=== PATIENT | male | born 1995 | race African-American/Black ===

== ENCOUNTER 2020-08-21 17:20 | Observation (INO) ==
[2020-08-21] MEDS ORDERED: MoRPHine SULFATE 4 MG/ML 1 ML CARP\\VIAL IV STA ×2 (17:50→18:20)
[2020-08-21] MEDS ORDERED: SODIUM CHLORIDE 0.9% 1000ML 2,000 ML IV ONE (17:50)
[2020-08-21] MEDS ORDERED: ONDANSETRON INJ 2 MG/ML 2 ML VIAL IV STA ×2 (17:50→18:20)
--- NOTE | 2020-08-21 17:55 | Emergency Department Note ---
History of Present Illness General Chief complaint: Abdominal Pain Stated complaint: ABD PAIN, VOMITING Time Seen by Provider: 08/21/20 17:35 Source: patient Mode of arrival: ambulatory Limitations: no limitations History of Present Illness Maximum Pain Intensity: 10 This patient comes in after having an abdominal pain in the epigastric area and vomiting since this morning he had about 20 episodes. When I go in the room he told a bag with bilious emesis. He denies chest pain or shortness of breath. No fall or trauma. No sick contacts or unusual food. Denies fever or chills. It may radiate towards his back. No history of gallbladder or liver or pancreas disease. No lower abdominal tenderness no testicular pain or swelling. No dysuria or hematuria. No diarrhea and has had normal bowel movements without blood. He does not drink alcohol or use drugs Home Medications Medication Instructions Recorded Confirmed Type No Known Home Medications 08/21/20 08/21/20 History Allergies Allergy/AdvReac Type Severity Reaction Status Date / Time No Known Allergies Allergy Unverified 08/21/20 18:31 Past Med/Surg History Social History Smoking Status: Never smoker Feels Safe at Home: Yes Review of Systems A total of 10 systems reviewed and were otherwise negative Physical Exam Vital Signs Vital Signs - 24 hr 08/21/20 17:22 08/21/20 18:28 08/21/20 19:01 Temperature 36.6 C Temperature Source Oral Pulse Rate 70 72 Pulse Rate [Finger] 71 Pulse Rate from SpO2 Sensor 72 Pulse Rhythm Regular Pulse Strength Normal Respiratory Rate 18 18 16 Respiratory Effort / Characteristics Non-Labored Respiratory Depth Normal Respiratory Pattern Regular Blood Pressure 159/114 H 165/101 H Blood Pressure [Right Arm] 152/101 H Blood Pressure Mean 129 122 Blood Pressure Mean [Right Arm] 118 Blood Pressure Position Sitting Pulse Oximetry 98 100 100 Oxygen Delivery Method Room Air Room Air Sepsis Recent Fever Within 48 Hours No Sepsis New/Unexplained Change in Mental Status No Sepsis Action Taken by Nursing No Action Required 08/21/20 19:08 08/21/20 19:09 08/21/20 19:30 Temperature 36.6 C Temperature Source Oral Pulse Rate 73 67 Pulse Rate [Finger] 71 Pulse Rate from SpO2 Sensor 72 68 Pulse Rhythm Pulse Strength Respiratory Rate 18 16 13 Respiratory Effort / Characteristics Non-Labored Respiratory Depth Normal Respiratory Pattern Regular Blood Pressure 143/97 H Blood Pressure [Right Arm] 152/101 H Blood Pressure Mean 112 Blood Pressure Mean [Right Arm] 118 Blood Pressure Position Pulse Oximetry 100 100 100 Oxygen Delivery Method Room Air Sepsis Recent Fever Within 48 Hours Sepsis New/Unexplained Change in Mental Status Sepsis Action Taken by Nursing 08/21/20 20:53 08/21/20 20:54 08/21/20 21:00 Temperature Temperature Source Pulse Rate 72 76 74 Pulse Rate [Finger] Pulse Rate from SpO2 Sensor 76 72 Pulse Rhythm Pulse Strength Respiratory Rate 16 14 18 Respiratory Effort / Characteristics Respiratory Depth Respiratory Pattern Blood Pressure 147/92 H 164/99 H Blood Pressure [Right Arm] Blood Pressure Mean 110 120 Blood Pressure Mean [Right Arm] Blood Pressure Position Pulse Oximetry 99 100 Oxygen Delivery Method Sepsis Recent Fever Within 48 Hours Sepsis New/Unexplained Change in Mental Status Sepsis Action Taken by Nursing 08/21/20 21:01 08/21/20 21:30 08/21/20 21:31 Temperature Temperature Source Pulse Rate 78 76 75 Pulse Rate [Finger] Pulse Rate from SpO2 Sensor 81 74 76 Pulse Rhythm Pulse Strength Respiratory Rate 20 17 17 Respiratory Effort / Characteristics Respiratory Depth Respiratory Pattern Blood Pressure 173/108 H Blood Pressure [Right Arm] Blood Pressure Mean 129 Blood Pressure Mean [Right Arm] Blood Pressure Position Pulse Oximetry 100 100 100 Oxygen Delivery Method Sepsis Recent Fever Within 48 Hours Sepsis New/Unexplained Change in Mental Status Sepsis Action Taken by Nursing 08/21/20 21:57 08/21/20 22:00 08/21/20 22:30 Temperature 36.6 C Temperature Source Oral Pulse Rate 75 76 Pulse Rate [Finger] 71 Pulse Rate from SpO2 Sensor 74 82 Pulse Rhythm Pulse Strength Respiratory Rate 17 17 20 Respiratory Effort / Characteristics Non-Labored Respiratory Depth Normal Respiratory Pattern Regular Blood Pressure 162/106 H 148/104 H Blood Pressure [Right Arm] 152/101 H Blood Pressure Mean 124 118 Blood Pressure Mean [Right Arm] 118 Blood Pressure Position Pulse Oximetry 100 100 100 Oxygen Delivery Method Room Air Sepsis Recent Fever Within 48 Hours Sepsis New/Unexplained Change in Mental Status Sepsis Action Taken by Nursing General: Well developed well nourished mild to moderately ill-appearing young male who is holding emesis bag and appears uncomfortable but in no acute respiratory distress, breathing comfortably on room air. Normal speech HEENT: Normal cephalic atraumatic. Pupils are equal round and reactive to light. Extraocular movements are intact. Oropharynx is pink with moist mucous membranes. No swelling of the mouth lips or tongue. Neck: Supple with a midline trachea. No meningeal signs or stiffness, no JVD or bruits. No Stridor. Chest: Clear to auscultation bilaterally. No wheezes or rhonchi. No increased work of breathing. Heart: Regular rate and rhythm without murmurs or gallops. Abdomen: Soft moderately tender in the epigastric area, nondistended without rebound guarding or rigidity. Extremities: No cyanosis clubbing or edema. No calf tenderness or assymetry Spine/Back. Non tender to palpation. No CVA tenderness Skin: Good turgor without rashes. Neurologic exam: Cranial nerves two through 12 are intact. Motor and sensation are intact and symmetrical throughout. Course Administered Medications Pantoprazole Sodium 40 mg/ (Dextrose) 100 mls @ 20 mls/hr IV Q5H MARVIN Stop: 09/20/20 21:29 Last Admin: 08/21/20 22:23 Dose: 8 mg/hr, 20 mls/hr Documented by: [id number] Discontinued Medications Hydromorphone HCl (Hydromorphone Inj 1 Mg/Ml Syringe) 1 mg IV NOW STA Stop: 08/21/20 18:48 Last Admin: 08/21/20 19:02 Dose: 1 mg Documented by: [id number] Hydromorphone HCl (Hydromorphone Inj 1 Mg/Ml Syringe) 1 mg IV NOW STA Stop: 08/21/20 19:44 Last Admin: 08/21/20 19:57 Dose: Not Given Documented by: [id number] Sodium Chloride (Nss 1000ml) 2,000 mls @ 999 mls/hr IV .Q2H1M ONE Stop: 08/21/20 19:50 Last Admin: 08/21/20 18:03 Dose: 999 mls/hr Documented by: [id number] Pantoprazole Sodium 80 mg/ (Dextrose) 100 mls @ 400 mls/hr IV ONE STA Stop: 08/21/20 21:33 Last Infusion: 08/21/20 22:22 Dose: 0 mls/hr Documented by: [id number] Admin: 08/21/20 22:00 Dose: 400 mls/hr Documented by: [id number] Ioversol (Ioversol 100ml) 93 ml IV ONCE ONE Stop: 08/21/20 18:57 Last Admin: 08/21/20 18:56 Dose: 93 ml Documented by: [id number] Ketorolac Tromethamine (Ketorolac 30 Mg/Ml Vial) 30 mg IV NOW ONE Stop: 08/21/20 20:40 Last Admin: 08/21/20 20:50 Dose: 30 mg Documented by: [id number] Morphine Sulfate (Morphine Sulfate 4 Mg/Ml 1 Ml Carp\Vial) 4 mg IV NOW STA Stop: 08/21/20 17:51 Last Admin: 08/21/20 18:03 Dose: 4 mg Documented by: [id number] Morphine Sulfate (Morphine Sulfate 4 Mg/Ml 1 Ml Carp\Vial) 4 mg IV NOW STA Stop: 08/21/20 18:21 Last Admin: 08/21/20 18:26 Dose: 4 mg Documented by: [id number] Ondansetron HCl (Ondansetron Inj 2 Mg/Ml 2 Ml Vial) 4 mg IV NOW STA Stop: 08/21/20 17:51 Last Admin: 08/21/20 18:04 Dose: 4 mg Documented by: [id number] Ondansetron HCl (Ondansetron Inj 2 Mg/Ml 2 Ml Vial) 4 mg IV NOW STA Stop: 08/21/20 18:21 Last Admin: 08/21/20 18:26 Dose: 4 mg Documented by: [id number] Medical Decision Making Differential Diagnosis Gastroenteritis, pancreatitis, gallbladder disease, liver disease, bowel obstruction, infection, electrolyte or metabolic abnormality, Covid Medical Records Attestation: I reviewed the patient's medical records. Home Medications Current Medication List: was personally reviewed by me Laboratory Data Attestation: I reviewed the patient's lab results. Result diagrams: 08/21/20 18:03 08/21/20 18:03 Lab Results 08/21/20 08/21/20 08/21/20 Range/Units 18:03 18:03 19:46 WBC 11.44 H (4.8-10.8) K/uL RBC 5.68 (4.7-6.1) M/uL Hgb 17.6 (14.0-18.0) g/dL Hct 49.5 (42-52) % MCV 87.1 (80-100) fL MCH 31.0 (25-34) pg MCHC 35.6 (32-36) g/dL RDW Std Deviation 41.3 (36.4-46.3) fL RDW Coeff of Gio 12.9 (11.5-14.5) % Plt Count 327 (130-400) K/uL MPV 9.6 (7.4-10.4) fL Immature Gran % (Auto) 0.4 % Neut % (Auto) 88.0 % Lymph % (Auto) 8.4 % [place] % (Auto) 2.9 % Eos % (Auto) 0.0 % Baso % (Auto) 0.3 % Neut # (Auto) 10.07 H (1.4-6.5) K/uL Lymph # (Auto) 0.96 L (1.2-3.4) K/uL [place] # (Auto) 0.33 (0.11-0.59) K/uL Eos # (Auto) 0.00 (0-0.5) K/uL Baso # (Auto) 0.03 (0-0.2) K/uL Immature Gran # (Auto) 0.05 H (0.00-0.02) K/uL Sodium 140 (136-145) mmol/L Potassium 3.7 (3.5-5.1) mmol/L Chloride 111 H (98-107) mmol/L Carbon Dioxide 20 L (21-32) mmol/L Anion Gap 9.0 (3-11) BUN 13 (7-18) mg/dl Creatinine 0.95 (0.6-1.4) mg/dl Est Cr Clr Drug Dosing 150.5 ml/min Est GFR ( Amer) 126.6 Est GFR (Non-Af Amer) 109.3 BUN/Creatinine Ratio 13.9 (10-20) Glucose 124 H (70-99) mg/dl Calcium 9.5 (8.5-10.1) mg/dl Total Bilirubin 0.4 (0.2-1) mg/dl AST 17 (15-37) U/L ALT 42 (12-78) U/L Alkaline Phosphatase 149 H (45-117) U/L Troponin I < 0.015 (0-0.045) ng/ml Total Protein 8.4 H (6.4-8.2) gm/dl Albumin 4.4 (3.4-5.0) gm/dl Globulin 4.0 (2.5-4.0) gm/dl Albumin/Globulin Ratio 1.1 (0.9-2) Lipase 70 L (73-393) U/L Urine Color Urine Appearance (Clear) Urine pH (4.5-7.5) Ur Specific [place] (1.000-1.030) Urine Protein (Negative) Urine Glucose (UA) (Negative) Urine Ketones (Negative) Urine Blood (Negative) Urine Nitrite (Negative) Urine Bilirubin (Negative) Urine Urobilinogen (Negative) Ur Leukocyte Esterase (Negative) Urine WBC (Auto) (0-5) /hpf Urine RBC (Auto) (0-4) /hpf U Hyaline Cast (Auto) (0-5) /lpf U Epithel Cells (Auto) (0-5) /lpf Urine Bacteria (Auto) (Negative) Ur Renal Epithelial Cell Urine Opiates Screen Pos H (Neg) Ur Methadone, Qual Neg (Neg) Urine Barbiturates Neg (Neg) Ur Phencyclidine (PCP) Neg (Neg) U Amphetamin/Meth Scrn Neg (Neg) MDMA (Ecstasy) Screen Neg (Neg) U Benzodiazepines Scrn Neg (Neg) Ur Cocaine Metabolite Pos H (Neg) U Marijuana (THC) Screen Neg (Neg) COVID-19 Eval Order SARS-CoV-2 (PCR) (Negative) Influenza Type A (PCR) (Neg) Influenza Type B (PCR) (Neg) RSV (RT-PCR) (Neg) 08/21/20 08/21/20 08/21/20 Range/Units 19:46 19:46 19:46 WBC (4.8-10.8) K/uL RBC (4.7-6.1) M/uL Hgb (14.0-18.0) g/dL Hct (42-52) % MCV (80-100) fL MCH (25-34) pg MCHC (32-36) g/dL RDW Std Deviation (36.4-46.3) fL RDW Coeff of Gio (11.5-14.5) % Plt Count (130-400) K/uL MPV (7.4-10.4) fL Immature Gran % (Auto) % Neut % (Auto) % Lymph % (Auto) % [place] % (Auto) % Eos % (Auto) % Baso % (Auto) % Neut # (Auto) (1.4-6.5) K/uL Lymph # (Auto) (1.2-3.4) K/uL [place] # (Auto) (0.11-0.59) K/uL Eos # (Auto) (0-0.5) K/uL Baso # (Auto) (0-0.2) K/uL Immature Gran # (Auto) (0.00-0.02) K/uL Sodium (136-145) mmol/L Potassium (3.5-5.1) mmol/L Chloride (98-107) mmol/L Carbon Dioxide (21-32) mmol/L Anion Gap (3-11) BUN (7-18) mg/dl Creatinine (0.6-1.4) mg/dl Est Cr Clr Drug Dosing ml/min Est GFR ( Amer) Est GFR (Non-Af Amer) BUN/Creatinine Ratio (10-20) Glucose (70-99) mg/dl Calcium (8.5-10.1) mg/dl Total Bilirubin (0.2-1) mg/dl AST (15-37) U/L ALT (12-78) U/L Alkaline Phosphatase (45-117) U/L Troponin I (0-0.045) ng/ml Total Protein (6.4-8.2) gm/dl Albumin (3.4-5.0) gm/dl Globulin (2.5-4.0) gm/dl Albumin/Globulin Ratio (0.9-2) Lipase (73-393) U/L Urine Color Yellow Urine Appearance Clear (Clear) Urine pH 7.0 (4.5-7.5) Ur Specific [place] > 1.045 H (1.000-1.030) Urine Protein Trace H (Negative) Urine Glucose (UA) Negative (Negative) Urine Ketones 4+ H (Negative) Urine Blood Negative (Negative) Urine Nitrite Negative (Negative) Urine Bilirubin Negative (Negative) Urine Urobilinogen Negative (Negative) Ur Leukocyte Esterase Negative (Negative) Urine WBC (Auto) 5-10 H (0-5) /hpf Urine RBC (Auto) 0-4 (0-4) /hpf U Hyaline Cast (Auto) 10-30 H (0-5) /lpf U Epithel Cells (Auto) >30 H (0-5) /lpf Urine Bacteria (Auto) Negative (Negative) Ur Renal Epithelial Cell Not Reportable Urine Opiates Screen (Neg) Ur Methadone, Qual (Neg) Urine Barbiturates (Neg) Ur Phencyclidine (PCP) (Neg) U Amphetamin/Meth Scrn (Neg) MDMA (Ecstasy) Screen (Neg) U Benzodiazepines Scrn (Neg) Ur Cocaine Metabolite (Neg) U Marijuana (THC) Screen (Neg) COVID-19 Eval Order [facility]FluRsv at [facility] SARS-CoV-2 (PCR) NEGATIVE (Negative) Influenza Type A (PCR) Negative (Neg) Influenza Type B (PCR) Negative (Neg) RSV (RT-PCR) Negative (Neg) Imaging Data Attestation: I personally reviewed and interpreted this imaging study as follows: My Impression: Chest x-rayno acute infiltrate, failure, pneumothorax seen. No free air. Radiologist's Impression: XR chest 1V portable HISTORY: 25 years-old Male epigastric pain acute epigastric abdominal pain COMPARISON: None TECHNIQUE: Portable AP view the chest FINDINGS: Cardiac silhouette is upper limits of normal in size. No pneumothorax, pleural effusion, airspace consolidation or overt pulmonary edema. Bones of the chest appear grossly intact. IMPRESSION: No acute process. ABDOMEN AND PELVIS CT WITH IV CONTRAST CT DOSE: 1569.05 mGy.cm HISTORY: Acute epigastric abdominal pain with vomiting epigastric pain, vomiting TECHNIQUE: Multiaxial CT images of the abdomen and pelvis were performed following the IV administration of 93 cc of Optiray 320, A dose lowering technique was utilized adhering to the principles of ALARA. COMPARISON STUDY: Chest radiograph of same day FINDINGS: Imaged inferior cardiac chambers are unremarkable. 6 mm solid nodule the basal left lower lobe on image 60 series 3 is indeterminate however statistically benign. No pneumatosis or pneumoperitoneum. Unremarkable spleen, pancreas and adrenal glands. Cholecystectomy. Unremarkable liver. Patency of the hepatic and portal veins. Unremarkable kidneys. No hydronephrosis. Urinary bladder and prostate are within normal limits. Aorta and IVC are within normal limits. There is no adenopathy. Small hiatal hernia. No bowel obstruction or bowel wall thickening. A few scattered nondilated air and fluid-filled loops of small bowel are present. Areas of wall thickening throughout the colon are likely secondary to partial distention. Noninflamed appendix. No ascites or mesenteric inflammation. Tiny fat filled periumbilical hernia. Unremarkable soft tissues. No acute fracture. IMPRESSION: 1. No bowel obstruction or pneumoperitoneum. 2. Mild wall thickening throughout the majority of the colon is likely secondary to partial distention. 3. Normal appendix. ECG Data Attestation: I personally reviewed and interpreted this ECG as follows: Indication: + abdominal pain Rate (beats per minute): 77 Rhythm: + normal sinus ECG Intervals/blocks: + Normal QRS, + Normal QT and + Normal IN ECG [place]: + Normal ECG ST segments: + repolarization abnormalities ECG Findings: no PACs and no PVCs Comparison ECG Date: no prior available MDM Narrative This patient comes in as described above. He was placed in room A2. Vomiting multiple episodes of abdominal pain it appears bilious now without blood. He has stable vitals however he does look very uncomfortable and his abdomen is very tender. IV access established and he was hydrated with a 2 L normal saline is given morphine 4 mg and Zofran 4 mg IV and extensive work-up was obtained. He did require additional IV morphine and I also gave him IV Dilaudid after he still seemed having pain. With additional IV Zofran the nausea seemed to be better. His white count was found to be mildly elevated. He has no significant electrolyte or metabolic abnormalities. He has nothing to suggest liver, gallbladder disease or pancreatitis, based on his blood work. He has normal renal function. EKG does not suggest acute coronary syndrome or arrhythmia troponin is negative his symptoms do not seem congested consistent with cardiac disease. Chest x-ray shows no free air or pulmonary process. With his sign ificant pain I was concerned about intra-abdominal or surgical process I did order a CT with IV contrast. CAT scan does not show any acute abnormalities or bowel obstruction. Despite his work-up looking benign with exception of a mildly elevated white count he continues to complain of pain and vomiting. He did receive IV Toradol and several rounds of IV narcotics. I do think he needs to be admitted for further treatment and evaluation we did Covid test him and it was negative. The hospitalist team saw him also added a lactic acid and are going to do an MRI angio to rule out any bowel ischemia. We did a urine drug screen also which was positive for opiate and cocaine metabolites. I do think he needs to be admitted for pain management and further and Dr. White and the [facility] hospitalist team will see him for these measures Continuous cardiac monitoring: Due to his epigastric pain order was placed in the EMR for continuous cardiac monitoring. Upon my interpretation, he was noted to be in normal sinus rhythm a pulse of 75. Impression & Plan Abdominal pain, Vomiting, Intractable abdominal pain, Dehydration, COVID-19 ruled out by laboratory testing Discharge Plan Visit Data Chief Complaint: Abdominal Pain Stated Complaint: ABD PAIN, VOMITING ED Provider: Narinder Allred Discharge Problem: Abdominal pain, Vomiting, Intractable abdominal pain, Dehydration, COVID-19 ruled out by laboratory testing Forms Stand Alone Forms: My [facility] Prescriptions Prescriptions: No Action No Known Home Medications RF: 0 Discharge Problem: Abdominal pain Qualifiers: Abdominal location: epigastric Qualified Code(s): R10.13 - Epigastric pain Vomiting Qualifiers: Vomiting type: unspecified Vomiting Intractability: intractable Nausea presence: with nausea Qualified Code(s): R11.2 - Nausea with vomiting, unspecified
[2020-08-21 18:09] LABS: Basophils # (auto) 0.03 K/uL (0-0.2); Basophils % (auto) 0.3 %; Hematocrit (blood only) 49.5 % (42-52); Hemoglobin 17.6 g/dL (14.0-18.0); Immature Granulocytes # (auto) 0.05 K/uL (0.00-0.02); Immature Granulocytes % (auto) 0.4 %; Lymphocytes # (auto) 0.96 K/uL (1.2-3.4); Lymphocytes % (auto) 8.4 %; Mean Corpuscular Hgb Conc 35.6 g/dL (32-36); Mean Corpuscular Volume 87.1 fL (80-100); Mean Platelet Volume 9.6 fL (7.4-10.4); Monocytes # (auto) 0.33 K/uL (0.11-0.59); Monocytes % (auto) 2.9 %; Neutrophils # (auto) 10.07 K/uL (1.4-6.5); Platelet Count 327 K/uL (130-400); RDW Coefficient of Variation 12.9 % (11.5-14.5); RDW Standard Deviation 41.3 fL (36.4-46.3); Red Blood Count 5.68 M/uL (4.7-6.1); White Blood Count 11.44 K/uL (4.8-10.8)
[2020-08-21 18:27] LABS: Alanine Aminotransferase 42 U/L (12-78); Albumin Level 4.4 gm/dl (3.4-5.0); Aspartate Aminotransferase 17 U/L (15-37); BUN Creatinine Ratio 13.9 (10-20); Blood Urea Nitrogen 13 mg/dl (7-18); Calcium 9.5 mg/dl (8.5-10.1); Carbon Dioxide 20 mmol/L (21-32); Chloride 111 mmol/L (98-107); Creatinine Clr Calc Pharmacy 150.5 ml/min; Est GFR (African American) 126.6; Est GFR (Non-African American) 109.3; Glucose 124 mg/dl (70-99); Lipase 70 U/L (73-393); Potassium 3.7 mmol/L (3.5-5.1); Sodium 140 mmol/L (136-145)
[2020-08-21 18:32] LABS: Albumin Globulin Ratio 1.1 (0.9-2); Alkaline Phosphatase 149 U/L (45-117); Bilirubin,Total 0.4 mg/dl (0.2-1); Total Protein 8.4 gm/dl (6.4-8.2); Troponin I < 0.015 ng/ml (0-0.045)
--- NOTE | 2020-08-21 18:42 | XRay Report ---
XR chest 1V portable HISTORY: 25 years-old Male epigastric pain acute epigastric abdominal pain COMPARISON: None TECHNIQUE: Portable AP view the chest FINDINGS: Cardiac silhouette is upper limits of normal in size. No pneumothorax, pleural effusion, airspace con solidation or overt pulmonary edema. Bones of the chest appear grossly intact. IMPRESSION: No acute process. ACT 112: Negative or not required by law. The above report was generated using voice recognition software. It may contain grammatical, syntax o r spelling errors. Electronically signed by: Tyron Bundy M.D. 08/21/2020 6:41 PM
[2020-08-21] MEDS ORDERED: HYDROmorphone INJ 1 MG/ML SYRINGE IV STA ×2 (18:47→19:43)
[2020-08-21] MEDS ORDERED: OPTIRAY 320 100ml IV ONE (18:56)
--- NOTE | 2020-08-21 19:09 | CT Scan Report ---
ABDOMEN AND PELVIS CT WITH IV CONTRAST CT DOSE: 1569.05 mGy.cm HISTORY: Acute epigastric abdominal pain with vomiting epigastric pain, vomiting TECHNIQUE: Multiaxial CT images of the abdomen and pelvis were performed following the IV administrat ion of 93 cc of Optiray 320, A dose lowering technique was utilized adhering to the principles of AL AMA. COMPARISON STUDY: Chest radiograph of same day FINDINGS: Imaged inferior cardiac chambers are unremarkable. 6 mm solid nodule the basal left lower l obe on image 60 series 3 is indeterminate however statistically benign. No pneumatosis or pneumoperit oneum. Unremarkable spleen, pancreas and adrenal glands. Cholecystectomy. Unremarkable liver. Patency of the hepatic and portal veins. Unremarkable kidneys. No hydronephrosis. Urinary bladder and prostate are within normal limits. Aorta and IVC are within normal limits. There is no adenopathy. Small hiatal hernia. No bowel obstruction or bowel wall thickening. A few scattered nondilated air and fluid-filled loops of small bowel are pr esent. Areas of wall thickening throughout the colon are likely secondary to partial distention. [place] nflamed appendix. No ascites or mesenteric inflammation. Tiny fat filled periumbilical hernia. Unrema rkable soft tissues. No acute fracture. IMPRESSION: 1. No bowel obstruction or pneumoperitoneum. 2. Mild wall thickening throughout the majority of the colon is likely secondary to partial distentio n. 3. Normal appendix. ACT 112: Negative or not required by law. The above report was generated using voice recognition software. It may contain grammatical, syntax o r spelling errors. Electronically signed by: Tyron Bundy M.D. 08/21/2020 7:08 PM
[2020-08-21 20:04] LABS: Appearance Urine Clear (Clear); Bacteria Urine Automated Negative (Negative); Bilirubin Urine Negative (Negative); Blood Urine Negative (Negative); Color Urine Yellow; Epithelial Cell Urine Auto >30 /lpf (0-5); Glucose Urine UA Negative (Negative); Ketones Urine 4+ (Negative); Leukocyte Esterase Urine Negative (Negative); Nitrite Urine Negative (Negative); Protein Urine Trace (Negative); RBC Urine Automated 0-4 /hpf (0-4); Specific Gravity Urine > 1.045 (1.000-1.030); Urobilinogen Urine Negative (Negative)
[2020-08-21 20:26] LABS: Amphetamines+Metham, Urine Neg (Neg); Barbiturates, Urine Neg (Neg); Benzodiazepine, Urine Neg (Neg); Cocaine, Urine Pos (Neg); MDMA (Ecstacy), Urine Neg (Neg); Methadone, Urine Neg (Neg); Opiate, Urine Pos (Neg); Phencyclidine, Urine Neg (Neg)
[2020-08-21] MEDS ORDERED: KETOROLAC 30 MG/ML VIAL IV ONE (20:39)
[2020-08-21 20:44] LABS: Influenza A virus by PCR Negative (Neg); Influenza B virus by PCR Negative (Neg); RSV by PCR Negative (Neg); SARS CoV2 RNA(COVID-19) InHosp NEGATIVE (Negative)
--- NOTE | 2020-08-21 21:13 | History & Physical Report ---
Date of Service August 21, 2020 Assessment & Plan (1) Abdominal pain: Patient is a 25 year with PMHx cholecystectomy who presents with one day history of copious vomiting, coffee ground emesis, and severe abdominal pain. Abdominal Pain with Copious vomiting and coffee ground emesis -Initial WBC mildly elevated 11.44 suspect due to demargination -Hgb 17.6, likely from hemoconcentration due to profuse vomiting -CT Ab/Pelv without signs of bowel obstruction or pneumoperitoneum, mild wall thickening throughout colon. -Though patient noting coffee ground emesis, Sixto-Blatchford Bleeding Score of 0 with low risk for GI bleed. Still possibility for GI ulcer, though no recent NSAID use or other symptoms flagging for ulceration. -Will still empirically bolus with Protonix 80mg and place on protonix gtt for possibility of EGD -GI consulted for possible scope -With positive cocaine on UDS, although patient denies still with some concern for ischemic bowel -Will order for MRA of Ab/Pelv to r/o mesenteric ischemia. If positive then will consult surgery. -Will also order for Lactic acid, pending. -Zofran PRN nausea -At this time will give Benadryl and Tylenol for pain control. -Patient already received Morphine 8mg, Dilaudid 1mg, and Toradol 30mg in the ED with minimal improvement. -With positive drug screen hesitate to continually give increasing dosing of narcotics without reasonable cause, awaiting MRA and lactic results as above. Dispo: M/S Telemetry. Suspect that patient's discomfort is more likely viral and should resolve in 24-48 hours at most, though with concerns for cocaine abuse and possible mesenteric ischemia/bowel necrosis will continue monitoring on telemetry and provide IVF, pain control, and nausea control. FEN: NPO, LR 150ml/hr DVT: SCD Code: Full (2) Vomiting: History of Present Illness Chief Complaint: Coffee ground emesis, abdominal pain Primary Care Provider: NO PCP Patient is a 25 year with PMHx cholecystectomy who presents with one day history of copious vomiting, coffee ground emesis, and severe abdominal pain. Patient notes that he recently returned from the [employer] yesterday when this morning he started experiencing severe abdominal pain with associated vomiting. He has vomited over 20+ times throughout the day, noting a majority of the emesis had coffee ground throughout and the remaining was a green/yellow. He has not been able to keep any food or fluids down today. He states that his abdominal pain currently is 9/10 worse epigastric and the upper quadrants, but is fairly diffuse throughout all quadrants. In the ED he has received 8mg IV Zofran, 8mg IV Morphine, 1mg Dilaudid, and 30mg Ketorolac with minimal improvement in his pain. He has also undergone a CT of his abdomen and pelvis noting mild wall thickening, but otherwise nonspecific for other etiology. Interestingly enough, his urine drug screen was positive for Opiates and Cocaine. While the Opiates may be from the administration here in the hospital, unsure for the reason for cocaine positivity. Discussed findings with patient who denied vehemently in multiple regards to having used any cocaine or crack cocaine in his life. He also denies being around anyone who may have been using it, sharing any foods, drinks, etc. Patient denies fever, chills, SOB, chest pain, headache, diarrhea, BRB per rectum. Notes abdominal pain, nausea, vomiting, coffee ground emesis. Med Hx: negative per patient Surg Hx: Cholecystectomy Soc Hx: 1 pack cigarettes/week, denies alcohol use, vehemently denies drug use. Allergies Allergy/AdvReac Type Severity Reaction Status Date / Time No Known Allergies Allergy Unverified 08/21/20 18:31 Home Medications Medication Instructions Recorded Confirmed Type No Known Home Medications 08/21/20 08/21/20 History Past Med/Surg History Social History Smoking Status: Current every day smoker Do You Dip or Chew Tobacco: No; Hx Alcohol Use: No Hx Substance Use: No Preferred Language: Portuguese Communication Ability: Effective Intermediate Project Manager Required: No Beliefs That Will Affect Care: None Current Living Situation: Parent Current Living Situation Comment: Lives with mother Other Information That Helps Us Care for You: No Feels Safe at Home: Yes Safety Concerns: Feels Safe At This Time Assistive Devices: None Review of Systems Review of Systems: All systems reviewed & are unremarkable except as noted in Subjective Physical Exam Constitutional: WD/WN, vitals as above Eyes: PERRL, conjunctivae normal, anicteric sclerae ENMT: external ear and nose normal, oropharynx normal Neck: trachea midline, no thyromegaly Respiratory: normal respiratory effort, lungs clear to auscultation Cardiovascular: RRR, no murmur, no edema Gastrointestinal (Abdomen): Inspection/Auscultation: + abdomen distended and + hypoactive bowel sounds Percussion/Palpation: + abdomen tender (Extremely TTP in all quadrants worse in the upper), + guarding and abdomen soft; abdomen not rigid and abdomen not firm Patient DOES NOT have pain out of proportion on abdominal exam. His pain DOES worsen with palpation of the abdomen significantly. Musculoskeletal: no cyanosis or clubbing, extremities motor strength 5/5 Skin: no rashes, warm and dry Neurologic: PERRL, EOMI, accommodation nl, no face palsy, no dysarthria Psychiatric: Orientation: alert and oriented x 3 Eye Contact: + fair eye contact Results & Data Results & Data ([facility]) Vital Signs (Past 12 Hours) Vital Signs Temp Pulse Pulse Resp BP BP Pulse Ox 08/21/20 19:30 67 13 143/97 H 100 08/21/20 19:09 73 16 100 08/21/20 19:08 36.6 C 71 18 152/101 H 100 08/21/20 19:01 72 16 165/101 H 100 08/21/20 18:28 71 18 152/101 H 100 08/21/20 17:22 36.6 C 70 18 159/114 H 98 Supervising Physician Co-Signing Physician Notes Attending addendum: I have physically seen this patient, have supervised the medical residents activities, and agree with the H&P unless as otherwise noted. Assessment and Plan: Abdominal pain/vomiting/patient reported coffee-ground emesis- CT abdomen/pelvis without significant findings Urine drug screen positive for cocaine, bring up concern for possible gastric ulcer versus delayed gastric emptying versus ischemic colitis MRA abdomen pelvis negative. N.p.o. Protonix IV IV fluids Zofran 4 mg IV every 6 hours as needed Consult gastroenterology for possible need for EGD if symptoms are persistent Of note, patient received morphine 8 mg IV, Dilaudid 1 mg IV, Toradol 30 mg IV and Zofran IV with minimal improvement in symptoms. Remaining orders and notations as noted Resident Activity Tracking Resident Involvement: Resident Care Provided Care Provided: Adult [facility]
[2020-08-21] MEDS ORDERED: PANTOprazole 80 MG in DEXTROSE 5% 100 ML IV STA (21:19)
[2020-08-21] MEDS: PANTOprazole 40 MG in DEXTROSE 5% 100 ML IV SCH (22:23)
[2020-08-21] MEDS ORDERED: GADOBUTROL 65ML VIAL IV ONE (23:52)
[2020-08-22] MEDS ORDERED: LACTATED RINGER'S 1,000 ML IV ONE (00:35)
[2020-08-22] MEDS ORDERED: ONDANSETRON INJ 2 MG/ML 2 ML VIAL IV PRN (00:55)
[2020-08-22] MEDS: diphenhydrAMINE 50 MG/ML VIAL IV PRN ×2 (01:10→09:40)
[2020-08-22] MEDS: ACETAMINOPHEN 500 MG TAB PO PRN ×2 (01:10→09:40)
[2020-08-22] MEDS: LACTATED RINGER'S 1,000 ML IV SCH ×2 (02:29→07:04)
[2020-08-22 02:44] LABS: Basophils # (auto) 0.01 K/uL (0-0.2); Basophils % (auto) 0.1 %; Hematocrit (blood only) 43.9 % (42-52); Hemoglobin 15.8 g/dL (14.0-18.0); Immature Granulocytes # (auto) 0.07 K/uL (0.00-0.02); Immature Granulocytes % (auto) 0.5 %; Lymphocytes # (auto) 0.94 K/uL (1.2-3.4); Lymphocytes % (auto) 7.3 %; Mean Corpuscular Hemoglobin 31.5 pg (25-34); Mean Corpuscular Volume 87.6 fL (80-100); Mean Platelet Volume 9.5 fL (7.4-10.4); Monocytes # (auto) 0.61 K/uL (0.11-0.59); Monocytes % (auto) 4.7 %; Neutrophils # (auto) 11.24 K/uL (1.4-6.5); Neutrophils % (auto) 87.4 %; Platelet Count 340 K/uL (130-400); RDW Coefficient of Variation 13.3 % (11.5-14.5); RDW Standard Deviation 42.3 fL (36.4-46.3); Red Blood Count 5.01 M/uL (4.7-6.1); White Blood Count 12.87 K/uL (4.8-10.8)
[2020-08-22 02:51] LABS: Albumin Level 3.7 gm/dl (3.4-5.0); BUN Creatinine Ratio 17.9 (10-20); Calcium 8.6 mg/dl (8.5-10.1); Creatinine Clr Calc Pharmacy 188.9 ml/min; Est GFR (African American) 141.9; Est GFR (Non-African American) 122.4; Potassium 3.6 mmol/L (3.5-5.1)
[2020-08-22 02:54] LABS: Albumin Globulin Ratio 1.1 (0.9-2); Bilirubin,Total 0.4 mg/dl (0.2-1); Globulin 3.3 gm/dl (2.5-4.0)
[2020-08-22] MEDS: PANTOprazole 40 MG in DEXTROSE 5% 100 ML IV SCH ×2 (03:21→08:27)
[2020-08-22] MEDS ORDERED: ALUMINUM/MAGNESIUM SUSP 18 ML, LIDOCAINE HCL VISCOUS 2% 6 ML, BARCODE IDENTIFIER 1 EA PO ONE (03:29)
[2020-08-22] MEDS ORDERED: KETOROLAC TROMETHAMINE 15 MG/ML VIAL IV PRN (03:31)
[2020-08-22] MEDS ORDERED: LACTATED RINGER'S 500 ML IV ONE (03:31)
--- NOTE | 2020-08-22 04:08 | Billing Data ---
Date of Service August 22, 2020 Coding Level of Care Code 03247 OBS Care - Level 3
[2020-08-22] MEDS ORDERED: METOCLOPRAMIDE HCL INJ 5 MG/ML 2 ML VIAL IV STA (04:37)
--- NOTE | 2020-08-22 08:00 | Magnetic Resonance Report ---
MR ANGIOGRAPHY OF THE PELVIS WITH AND WITHOUT CONTRAST CLINICAL HISTORY: Concern for ischemic bowel. COMPARISON STUDY: CT of the abdomen and pelvis August 13, 2020. TECHNIQUE: Utilizing a 1.5 Amanda magnet and dedicated coil, unenhanced and contrast-enhanced MRA of t deacon pelvis was obtained. Intravenous injection of 15 cc of Gadavist was uneventful. FINDINGS: Please note that the MRA of the abdomen will be reported separately. The caliber of the abd ominal aorta is normal. The celiac axis, superior mesenteric artery and inferior mesenteric artery ar e patent. The bilateral renal arteries are patent. Nephrograms are symmetric. The bilateral common il iac, external iliac and internal iliac arteries are patent. No dissection is noted. There is no signi ficant stenosis within these vessels. No atherosclerotic plaque is identified. No fluid collection or ascites within the pelvis is noted. There is no lymphadenopathy. The caliber and wall thickness of v isualized small and large bowel within the pelvis is normal. IMPRESSION: Normal MRA of the pelvis. ACT 112: Negative or not required by law. Electronically signed by: Virgil Mtz M.D. 08/22/2020 7:59 AM
--- NOTE | 2020-08-22 08:06 | Magnetic Resonance Report ---
MR angio abdomen wo/w con HISTORY: Generalized abdominal pain. Nausea. Vomiting. Concern for ischemic bowel TECHNIQUE: Multiplanar multisequence MRI of the abdomen was performed both before and after the intra venous administration of 15 cc of Gadavist contrast. COMPARISON STUDY: Abdomen and pelvis CT 08/21/2020. FINDINGS: The lung bases are clear. The liver, spleen, adrenal glands, kidneys, and pancreas unremark able. The gallbladder surgically absent. The visualized loops of bowel show no wall thickening or obs truction. The abdominal aorta is normal in course and caliber with no evidence for dissection. The ma in portal vein and mesenteric veins appear patent. The celiac, renal, superior mesenteric, and inferi or mesenteric arteries appear widely patent. MRA of the pelvis will be reported separately. IMPRESSION: Normal MRA of the abdomen. ACT 112: Negative or not required by law. Electronically signed by: Dion Wesley M.D. 08/22/2020 8:05 AM
--- NOTE | 2020-08-22 09:09 | Gastrointestinal Consultation ---
Date of Consultation August 22, 2020 Assessment & Plan (1) Abdominal pain: Abdominal pain: Presented with epigastric abdominal pain, nausea, and vomiting that began yesterday morning with subsequent admission for further management. He has continued abdominal pain with palpation that is worse in the epigastric region. No current nausea or vomiting. Protonix gtt and IVF continue. Would maintain NPO due to abdominal pain and advance diet as tolerated once improving. Discussed case with Dr. Kenney. Will hold EGD at this time and monitor at this time. Please refer to supervising physician addendum for further recommendations. History of Present Illness Attending Physician: Jose A Hodges History of Present Illness The patient is a 25-year-old male with PMH to include cholecystectomy that presented to the ED 08/21/2020 with c/o epigastric abdominal pain, nausea, and coffee ground emesis. He was admitted for further management and the GI service was consulted to evaluate for EGD. On exam/interview today, the patient reports some improvement in symptoms since admission. Reports epigastric pain that wrapped into his back beginning yesterday morning. Reports nausea and vomiting began yesterday morning also. Reports emesis was green/black in color. This morning reports epigastric and generalized abdominal discomfort with palpation. Denies nausea or vomiting. Denies dizziness, shortness of breath, or chest pain. Denies fever. Has not had colonoscopy or EGD in the past. Last bowel movement yesterday morning. Denies melena or hematochezia. The patient is a current smoker. Reports he smokes 1 pack of cigarettes per week and has for the last year. Denies alcohol use. Denies use of recreational drugs including marijuana. 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 His father and girlfriend live near [place], [place]. He has a child age 99 years old. Allergies Allergy/AdvReac Type Severity Reaction Status Date / Time No Known Allergies Allergy Unverified 08/21/20 18:31 Home Medications Medication Instructions Recorded Confirmed Type No Known Home Medications 08/21/20 08/21/20 History Patient History Social History Smoking Status: Current every day smoker Do You Dip or Chew Tobacco: No; Hx Alcohol Use: No Hx Substance Use: No Preferred Language: Tongan Communication Ability: Effective Hand Former Required: No Beliefs That Will Affect Care: None Current Living Situation: Parent Current Living Situation Comment: Lives with mother Other Information That Helps Us Care for You: No Feels Safe at Home: Yes Safety Concerns: Feels Safe At This Time Assistive Devices: None Review of Systems Review of Systems: All systems reviewed & are unremarkable except as noted in Subjective Physical Exam Constitutional: WD/WN, vitals as above Eyes: no conjunctival abnormality ENMT: Ears: no hearing impairment Nose: no external nose abnormality Neck: normal visual inspection and trachea midline; no tracheal deviation Respiratory: normal respiratory effort, lungs clear to auscultation Cardiovascular: RRR, no murmur, no edema Gastrointestinal (Abdomen): Inspection/Auscultation: abdomen normal to inspection and normal bowel sounds; abdomen not distended Per cussion/Palpation: + abdomen tender (generalized pain with palpation worse in epigastric region), + guarding and abdomen soft; abdomen not rigid Musculoskeletal: Extremities: extremities normal to inspection Skin: no rashes, warm and dry Neurologic: PERRL, EOMI, accommodation nl, no face palsy, no dysarthria Psychiatric: A+Ox3, euthymic affect Results & Data ([facility]) Vital Signs (Past 12 Hours) Vital Signs Temp Pulse Pulse Resp BP BP Pulse Ox 08/22/20 07:50 37.6 C H 96 H 20 149/81 H 99 08/22/20 01:42 37.1 C 91 H 18 159/91 H 93 08/22/20 00:52 84 08/22/20 00:30 108 H 17 122/89 99 08/22/20 00:10 37.1 C 18 93 08/22/20 00:00 74 17 149/75 H 97 08/21/20 23:45 73 16 100 08/21/20 23:44 71 21 165/96 H 100 08/21/20 22:30 76 20 148/104 H 100 08/21/20 22:00 75 17 162/106 H 100 08/21/20 21:57 36.6 C 71 17 152/101 H 100 08/21/20 21:31 75 17 100 08/21/20 21:30 76 17 173/108 H 100 08/21/20 21:01 78 20 100 08/21/20 21:00 74 18 164/99 H 100 08/21/20 20:54 76 14 99 08/21/20 20:53 72 16 147/92 H Laboratory Results - last 24 hr 08/21/20 08/21/20 08/21/20 18:03 18:03 18:03 WBC 11.44 H RBC 5.68 Hgb 17.6 Hct 49.5 MCV 87.1 MCH 31.0 MCHC 35.6 RDW Std Deviation 41.3 RDW Coeff of Gio 12.9 Plt Count 327 MPV 9.6 Immature Gran % (Auto) 0.4 Neut % (Auto) 88.0 Lymph % (Auto) 8.4 Bulloch % (Auto) 2.9 Eos % (Auto) 0.0 Baso % (Auto) 0.3 Neut # (Auto) 10.07 H Lymph # (Auto) 0.96 L Bulloch # (Auto) 0.33 Eos # (Auto) 0.00 Baso # (Auto) 0.03 Immature Gran # (Auto) 0.05 H Sodium 140 Potassium 3.7 Chloride 111 H Carbon Dioxide 20 L Anion Gap 9.0 BUN 13 Creatinine 0.95 Est Cr Clr Drug Dosing 150.5 Est GFR ( Amer) 126.6 Est GFR (Non-Af Amer) 109.3 BUN/Creatinine Ratio 13.9 Glucose 124 H Lactate Calcium 9.5 Total Bilirubin 0.4 AST 17 ALT 42 Alkaline Phosphatase 149 H Troponin I < 0.015 Total Protein 8.4 H Albumin 4.4 Globulin 4.0 Albumin/Globulin Ratio 1.1 Lipase 70 L Procalcitonin < 0.05 Urine Color Urine Appearance Urine pH Ur Specific [employer] Urine Protein Urine Glucose (UA) Urine Ketones Urine Blood Urine Nitrite Urine Bilirubin Urine Urobilinogen Ur Leukocyte Esterase Urine WBC (Auto) Urine RBC (Auto) U Hyaline Cast (Auto) U Epithel Cells (Auto) Urine Bacteria (Auto) Ur Renal Epithelial Cell Urine Opiates Screen U Codeine Confrm GC/MS Ur Morphine (GC/MS) Ur Hydrocodone (GC/MS) Ur Norhydrocodone Ur Noroxycodone Urine Oxycodone (GC/MS) U Oxymorphone GC/MS Ur Methadone, Qual Ur Hydromorphone (GC/MS) Urine Barbiturates Ur Phencyclidine (PCP) U Amphetamin/Meth Scrn MDMA (Ecstasy) Screen U Benzodiazepines Scrn U Cocaine Confirm GC/MS Ur Cocaine Metabolite U Marijuana (THC) Screen Drug Screen Comment COVID-19 Eval Order SARS-CoV-2 (PCR) Influenza Type A (PCR) Influenza Type B (PCR) RSV (RT-PCR) 08/21/20 08/21/20 08/21/20 19:46 19:46 19:46 WBC RBC Hgb Hct MCV MCH MCHC RDW Std Deviation RDW Coeff of Gio Plt Count MPV Immature Gran % (Auto) Neut % (Auto) Lymph % (Auto) Bulloch % (Auto) Eos % (Auto) Baso % (Auto) Neut # (Auto) Lymph # (Auto) Bulloch # (Auto) Eos # (Auto) Baso # (Auto) Immature Gran # (Auto) Sodium Potassium Chloride Carbon Dioxide Anion Gap BUN Creatinine Est Cr Clr Drug Dosing Est GFR ( Amer) Est GFR (Non-Af Amer) BUN/Creatinine Ratio Glucose Lactate Calcium Total Bilirubin AST ALT Alkaline Phosphatase Troponin I Total Protein Albumin Globulin Albumin/Globulin Ratio Lipase Procalcitonin Urine Color Yellow Urine Appearance Clear Urine pH 7.0 Ur Specific [employer] > 1.045 H Urine Protein Trace H Urine Glucose (UA) Negative Urine Ketones 4+ H Urine Blood Negative Urine Nitrite Negative Urine Bilirubin Negative Urine Urobilinogen Negative Ur Leukocyte Esterase Negative Urine WBC (Auto) 5-10 H Urine RBC (Auto) 0-4 U Hyaline Cast (Auto) 10-30 H U Epithel Cells (Auto) >30 H Urine Bacteria (Auto) Negative Ur Renal Epithelial Cell Not Reportable Urine Opiates Screen Pos H U Codeine Confrm GC/MS Ur Morphine (GC/MS) Ur Hydrocodone (GC/MS) Ur Norhydrocodone Ur Noroxycodone Urine Oxycodone (GC/MS) U Oxymorphone GC/MS Ur Methadone, Qual Neg Ur Hydromorphone (GC/MS) Urine Barbiturates Neg Ur Phencyclidine (PCP) Neg U Amphetamin/Meth Scrn Neg MDMA (Ecstasy) Screen Neg U Benzodiazepines Scrn Neg U Cocaine Confirm GC/MS Ur Cocaine Metabolite Pos H U Marijuana (THC) Screen Neg Drug Screen Comment COVID-19 Eval Order CovFluRsv at [facility] SARS-CoV-2 (PCR) Influenza Type A (PCR) Influenza Type B (PCR) RSV (RT-PCR) 08/21/20 08/21/20 08/21/20 19:46 19:46 23:41 WBC RBC Hgb Hct MCV MCH MCHC RDW Std Deviation RDW Coeff of Gio Plt Count MPV Immature Gran % (Auto) Neut % (Auto) Lymph % (Auto) Bulloch % (Auto) Eos % (Auto) Baso % (Auto) Neut # (Auto) Lymph # (Auto) Bulloch # (Auto) Eos # (Auto) Baso # (Auto) Immature Gran # (Auto) Sodium Potassium Chloride Carbon Dioxide Anion Gap BUN Creatinine Est Cr Clr Drug Dosing Est GFR ( Amer) Est GFR (Non-Af Amer) BUN/Creatinine Ratio Glucose Lactate 2.1 H* Calcium Total Bilirubin AST ALT Alkaline Phosphatase Troponin I Total Protein Albumin Globulin Albumin/Globulin Ratio Lipase Procalcitonin Urine Color Urine Appearance Urine pH Ur Specific [employer] Urine Protein Urine Glucose (UA) Urine Ketones Urine Blood Urine Nitrite Urine Bilirubin Urine Urobilinogen Ur Leukocyte Esterase Urine WBC (Auto) Urine RBC (Auto) U Hyaline Cast (Auto) U Epithel Cells (Auto) Urine Bacteria (Auto) Ur Renal Epithelial Cell Urine Opiates Screen U Codeine Confrm GC/MS Pending Ur Morphine (GC/MS) Pending Ur Hydrocodone (GC/MS) Pending Ur Norhydrocodone Pending Ur Noroxycodone Pending Urine Oxycodone (GC/MS) Pending U Oxymorphone GC/MS Pending Ur Methadone, Qual Ur Hydromorphone (GC/MS) Pending Urine Barbiturates Ur Phencyclidine (PCP) U Amphetamin/Meth Scrn MDMA (Ecstasy) Screen U Benzodiazepines Scrn U Cocaine Confirm GC/MS Pending Ur Cocaine Metabolite U Marijuana (THC) Screen Drug Screen Comment Pending COVID-19 Eval Order SARS-CoV-2 (PCR) NEGATIVE Influenza Type A (PCR) Negative Influenza Type B (PCR) Negative RSV (RT-PCR) Negative 08/22/20 08/22/20 08/22/20 02:06 02:06 02:08 WBC 12.87 H RBC 5.01 Hgb 15.8 Hct 43.9 MCV 87.6 MCH 31.5 MCHC 36.0 RDW Std Deviation 42.3 RDW Coeff of Gio 13.3 Plt Count 340 MPV 9.5 Immature Gran % (Auto) 0.5 Neut % (Auto) 87.4 Lymph % (Auto) 7.3 Bull[place] % (Auto) 4.7 Eos % (Auto) 0.0 Baso % (Auto) 0.1 Neut # (Auto) 11.24 H Lymph # (Auto) 0.94 L [place] # (Auto) 0.61 H Eos # (Auto) 0.00 Baso # (Auto) 0.01 Immature Gran # (Auto) 0.07 H Sodium 142 Potassium 3.6 Chloride 112 H Carbon Dioxide 19 L Anion Gap 11.0 BUN 14 Creatinine 0.80 Est Cr Clr Drug Dosing 188.9 Est GFR ( Amer) 141.9 Est GFR (Non-Af Amer) 122.4 BUN/Creatinine Ratio 17.9 Glucose 106 H Lactate 2.1 H* Calcium 8.6 Total Bilirubin 0.4 AST 12 L ALT 34 Alkaline Phosphatase 120 H Troponin I Total Protein 7.0 Albumin 3.7 Globulin 3.3 Albumin/Globulin Ratio 1.1 Lipase Procalcitonin Urine Color Urine Appearance Urine pH Ur Specific [employer] Urine Protein Urine Glucose (UA) Urine Ketones Urine Blood Urine Nitrite Urine Bilirubin Urine Urobilinogen Ur Leukocyte Esterase Urine WBC (Auto) Urine RBC (Auto) U Hyaline Cast (Auto) U Epithel Cells (Auto) Urine Bacteria (Auto) Ur Renal Epithelial Cell Urine Opiates Screen U Codeine Confrm GC/MS Ur Morphine (GC/MS) Ur Hydrocodone (GC/MS) Ur Norhydrocodone Ur Noroxycodone Urine Oxycodone (GC/MS) U Oxymorphone GC/MS Ur Methadone, Qual Ur Hydromorphone (GC/MS) Urine Barbiturates Ur Phencyclidine (PCP) U Amphetamin/Meth Scrn MDMA (Ecstasy) Screen U Benzodiazepines Scrn U Cocaine Confirm GC/MS Ur Cocaine Metabolite U Marijuana (THC) Screen Drug Screen Comment COVID-19 Eval Order SARS-CoV-2 (PCR) Influenza Type A (PCR) Influenza Type B (PCR) RSV (RT-PCR) 08/21/2020: ABDOMEN AND PELVIS CT WITH IV CONTRAST demonstrated 1. No bowel obstruction or pneumoperitoneum. 2. Mild wall thickening throughout the majority of the colon is likely secondary to partial distention. 3. Normal appendix. 08/21/2020: MR angio abdomen wo/w con demonstrated Normal MRA of the abdomen. 08/21/2020: MR ANGIOGRAPHY OF THE PELVIS WITH AND WITHOUT CONTRAST demonstrated Normal MRA of the pelvis (1) Abdominal pain Abdominal location: epigastric Qualified Code(s): R10.13 - Epigastric pain
[2020-08-22] MEDS ORDERED: SUCRALFATE 1 GM/10 ML UDC PO SCH (11:55)
--- NOTE | 2020-08-22 12:22 | Electrocardiogram Report ---
Test Reason : Blood Pressure : / mmHG Vent. Rate : 077 BPM Atrial Rate : 077 BPM P-R Int : 158 ms QRS Dur : 088 ms QT Int : 378 ms P-R-T Axes : 014 039 021 degrees QTc Int : 427 ms Normal sinus rhythm ST elevation, consider early repolarization, pericarditis, or injury Borderline ECG No previous ECGs available Confirmed by Bolivar Morris ([id number]) on 08/22/2020 12:21:59 PM Referred By: REFERRED SELF Confirmed By:Bolivar Morris
--- NOTE | 2020-08-22 13:23 | Discharge Summary ---
Date of Service date of admission - August 21, 2020 date of discharge - August 22, 2020 Admission HPI Per Admitting Provider Patient is a 25 year with PMHx cholecystectomy who presents with one day history of copious vomiting, coffee ground emesis, and severe abdominal pain. Patient notes that [facility] when this morning he started experiencing severe abdominal pain with associated vomiting. He has vomited over 20+ times throughout the day, noting a majority of the emesis had coffee ground throughout and the remaining was a green/yellow. He has not been able to keep any food or fluids down today. He states that his abdominal pain currently is 9/10 worse epigastric and the upper quadrants, but is fairly diffuse throughout all quadrants. In the ED he has received 8mg IV Zofran, 8mg IV Morphine, 1mg Dilaudid, and 30mg Ketorolac with minimal improvement in his pain. He has also undergone a CT of his abdomen and pelvis noting mild wall thickening, but otherwise nonspecific for other etiology. Interestingly enough, his urine drug screen was positive for Opiates and Cocaine. While the Opiates may be from the administration here in the hospital, unsure for the reason for cocaine positivity. Discussed findings with patient who denied vehemently in multiple regards to having used any cocaine or crack cocaine in his life. He also denies being around anyone who may have been using it, sharing any foods, drinks, etc. Patient denies fever, chills, SOB, chest pain, headache, diarrhea, BRB per rectum. Notes abdominal pain, nausea, vomiting, coffee ground emesis. Med Hx: negative per patient Surg Hx: Cholecystectomy Soc Hx: 1 pack cigarettes/week, denies alcohol use, vehemently denies drug use. Principal Diagnosis severe abdominal pain - possible gastritis; exact diagnosis uncertain as patient left Against Medical Advice Discharge Exam Constitutional + morbidly obese; no acute distress and no altered mental status ENMT external ear and nose normal, oropharynx normal Respiratory normal respiratory effort, lungs clear to auscultation Cardiovascular RRR, no murmur, no edema Heart Sounds: normal S1 and normal S2 Vessels: posterior tibial pulses present and dorsalis pedis pulses present Gastrointestinal (Abdomen) Inspection/Auscultation: normal bowel sounds; abdomen not distended Percussion/Palpation: + abdomen tender (Mild - high epigastric region ) and abdomen soft; no guarding, abdomen not rigid and no hepatosplenomegaly Skin no rashes, warm and dry Psychiatric Orientation: alert and oriented x 3 Discharge Data Allergies Allergy/AdvReac Type Severity Reaction Status Date / Time No Known Allergies Allergy Unverified 08/21/20 18:31 Consultations [facility] Ordered Studies 08/21/20 18:36 CT abd pelvis IV con only Stat IMPRESSION: 1. No bowel obstruction or pneumoperitoneum. 2. Mild wall thickening throughout the majority of the colon is likely secondary to partial distention. 3. Normal appendix. 08/21/20 21:11 MR angio abdomen wo/w con Stat - normal MRA abdomen. MR angio pelvis wo/w con Stat - normal MRA pelvis. Chest xray: no infiltrates COVID-19 PCR NEGATIVE Hospital Course (1) Abdominal pain: Exact etiology was uncertain. It was associated with severe vomiting and coffee-ground material by the patient's report. Despite the coffee-ground emesis his discharge hemoglobin was 15.9. CT abd/pelvis and MRA of the abd/pelvis were both normal; no pathology was found on either study. Given the coffee-ground emesis it was suspected he had severe gastritis or other upper GI process (PUD, etc). He was started on IV PPI and carafate. [facility] saw the patient in consult and recommended acid reduction and the potential for EGD if his symptoms did not improve. On the AM of hospital day #1 the patient began to request hospital discharge, stating he needed to leave because his ride was available to take him back to [place]. We advised him to remain hospitalized as his abdominal pain was not resolved. Further, he had had minimal PO intake. Despite these reasons he began to demand hospital discharge. We again advised he remain hospitalized but he declined such. While preparing his discharge as well as preparing his prescriptions for PPI and carafate the patient simply left the hospital. He did not wait for his discharge packet/instructions/prescriptions. This would be considered a leaving against medical advice ("AMA"). (2) Morbid obesity with BMI of 40.0-44.9, adult: BMI 41.5 (3) Lactic acidosis: Presented with mild lactic acidosis - lactate of 2.1. Presumably was due to severe vomiting/dehydration. NO intra-abdominal or pelvic ischemic process found on CT imaging and MR imaging. Total Time Total Time Spent Total Time Spent (In Minutes): 40 Total Time Includes: Examination of the Patient, Discharge Planning, Medication Reconciliation and Communication With Other Providers ([facility]) Discharge Plan Discharge Items Patient Disposition: Home - Self-Care Reason For Visit: ABDOMINAL PAIN, VOMITING, COFFEE GROUND EMESIS Discharge Diagnosis: Abdominal pain with vomiting of coffee grounds. Concern for upper gastrointestinal bleeding. You could have an ulcer, gastritis, or other problem with your upper GI tract. Activity: As commented below Activity Comment: light activities next 2-3 days Non-emergency contact: Primary Care Provider Call non-emergency contact if: you have any medication questions, your symptoms worsen, your pain is not controlled and your pain is worsening Follow-up/Referrals: PCP,NO [Primary Care Provider] - Diet: Clear liquid Addtl Attending Provider Instructions: You were admitted due to severe upper abdominal pain. You described what sounds like "coffee grounds" in your vomit. This could be old blood from an ulcer, stomach irritation (gastritis), etc. You were treated with IV fluids and IV acid reducers. You were advised to stay longer for observation and potentially more tests but you wanted discharge simon. Please take the following - 1. pantoprazole 40mg twice daily for 14 days 2. sucralfate 1gm 4 times a day for 10 days Additional recommendations - 1. see a GI specialist SIMON upon return home for possible upper endoscopy 2. follow a CLEAR LIQUID DIET TODAY, increase to full liquids tomorrow, and then gradually increase the solids in your diet later this week. See handouts. 3. NO ALCOHOL or CAFFEINE. 4. NO motrin, aspirin, ibuprofen, or naprosyn. 5. NO illicit drug use. 6. talk to your family doctor about your leg numbness. Obtain an MRI of your lumbar spine SIMON upon return home. Return to any hospital if - * you have worsening abdominal pains * you have blood or black in your stool * you have blood or black in your vomit * you can't hold down fluids * any other concerns Pending Studies at Discharge: No Stand-Alone Forms: My [facility], Smoking Cessation Medications and DC Order Prescriptions: New pantoprazole [Protonix] 40 mg tablet,delayed release (DR/EC) 40 mg PO BID 14 Days Qty: 28 RF: 0 sucralfate [Carafate] 1 gram tablet 1 g PO ACHS 10 Days Qty: 40 RF: 0 No Action No Known Home Medications RF: 0 Discharge Orders: Discharge Order (Routine); Ordered 08/22/20 Ordered By: Jose A Camargo/Other Patient Handouts: ED Clear Liquid Diet, ED Full Liquid Diet Admission Data Admit Date/Time: 08/21/20 21:33 Attending Provider: Jose A Hodges Admit Provider: Wojciech Broussard Primary Care Provider: PCP,NO Other Providers: Narinder Bowen Other Interventions: Discharge Summary Assessment (RN) Last Done: 08/22/20 13:28 Coding Level of Care Code 99959 OBS Care - Discharge Diagnoses Abdominal pain R10.13 Abdominal location: epigastric Morbid obesity with BMI of 40.0-44.9, adult E66.01; Z68.41 Lactic acidosis E87.2
[2020-08-24 01:21] LABS: Cocaine, Urine 1600 ng/mL (<100); Codeine Urine NEGATIVE ng/mL (<50); Hydrocodone Urine NEGATIVE ng/mL (<50); Hydromor Urine 190 ng/mL (<50); Morphine Urine 8360 ng/mL (<50); Norhydrocodone Conf Ur NEGATIVE ng/mL (<50); Noroxycodone Urine NEGATIVE ng/mL (<50); Oxycodone Urine NEGATIVE ng/mL (<50); Oxymorph Urine NEGATIVE ng/mL (<50)
== END 2020-08-22 13:20 | disposition home or self-care (01) ==
LOC: ED 17:20 → 2N 17:20 → SUATTDRO 21:33 → 2N 08-22 00:10